=== PATIENT | male | born 1945 | race Caucasian/White ===

== ENCOUNTER 2024-12-28 09:35 | Outpatient (REF) | payer MEDICARE, BC, SELFPAY ==
--- NOTE | ~2024-12-28 | MR_ITS ---
EXAMINATION: MR BRAIN WITHOUT CONTRAST CLINICAL INFORMATION: Memory loss, poor balance. 79-year-old male. COMPARISON: None available. TECHNIQUE: MRI of the brain was obtained using routine sequences without contrast. Examination performed on a 1.5 Joanne Siemens high-field unit. FINDINGS: There is no diffusion restriction. There is no intracranial hemorrhage, acute infarction, mass effect, or edema. Ventricles, sulci, and cisterns are normal in size and configuration for patient age. No asymmetric patterns of atrophy noted. No significant atrophy of the mesial temporal lobes. Temporal horns are symmetric and nondilated. No shift of midline. Numerous foci of hemosiderin deposition in the right posterior temporal/occipital lobe. There are a numerous scattered punctate and minimally confluent foci of white matter T2 hyperintensity in the periventricular, subcortical, and hemispheric deep white matter. These foci are nonspecific but statistically most likely relate to small vessel ischemia. No morphology or distribution specific to inflammatory demyelinating disease. Small focus of encephalomalacia right posterior temporal lobe, likely related to old ischemia. 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 Midline structures appear normally formed. Partial empty sella. Cerebellar tonsils are appropriately located. Major flow voids are preserved within the skull base. 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 Diminutive left vertebral artery. The globes and orbital contents demonstrate no abnormalities. There are bilateral lens replacements. Mucous retention cysts noted in the dependent left maxillary sinus. Paranasal sinuses are otherwise clear bilaterally. The mastoids and tympanic cavities are normally aerated. Extracranial soft tissues demonstrate no abnormalities. No suspicious bone marrow changes are evident. Atlantoaxial joint demonstrates moderate degenerative changes. MR/MR head/brain wo con IMPRESSION: 1. No evidence of intracranial hemorrhage, acute infarction, mass effect, or edema. 2. Age-related cerebral and cerebellar volume loss without asymmetric pattern of atrophy noted. 3. Mild to moderate small vessel ischemic changes. 4. Small focus of encephalomalacia right posterior temporal lobe, with associated hemosiderin deposition, likely related to old hemorrhagic ischemic event. Given location, posttraumatic event is also within the differential. 5. 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 Electronically signed by: Jose Martin Moss MD 12/30/2024 09:11 AM EDT
--- OUTSIDE RECORDS SUMMARY | 2024-12-28 09:55 | XMS_ITS | Clinical Summary ---
Author Organization [facility] Address [address] [place] [address] Care Team Providers Care Structural Ironworker Name Role Phone Syed Camara MD Primary Care Provider [phone] Syed Camara MD Unavailable [phone] Active Problems Problem Noted Date Diagnosed Date Deep vein thrombosis (DVT) 03/04/2023 Social History Tobacco Use Types Packs/Day Years Used Date Smoking Tobacco: Never Assessed Comments:Smoking Status:Cruz campos smoker Sex and Gender Information Value Date Recorded Sex Assigned at Not on file Legal Sex Male 8:17 PM EDT Gender Identity Not on file Sexual Orientation Not on file Last Filed Vital Signs Vital Sign Reading Time Taken Comments Blood Pressure 162/80 04/22/2022 12:42 PM EDT Pulse 96 04/22/2022 12:42 PM EDT Temperature 36.8 C (98.2 F) 05/25/2021 2:22 PM EST Respiratory Rate - - Oxygen Saturation - - Inhaled Oxygen Concentration - - Weight 78.9 kg (174 lb 0.2 oz) 04/22/2022 12:42 PM EDT Height 177.8 cm (5' 10 ) 04/22/2022 12:42 PM EDT Body Mass Index 24.97 04/22/2022 12:42 PM EDT Plan of Treatment Health Maintenance Due Date Last Done Comments Hepatitis C Screening 1945 DTaP/Tdap/Td (1 - Tdap) 10/30/1965 Colon Cancer Screening 10/30/1992 Pneumococcal 50+ years (1 of 1 - PCV) 10/30/1997 Zoster (Shingrix) (1 of 2) 10/30/1997 RSV (1 - 1-dose 75+ series) 10/30/2022 COVID-19 Vaccine ( - 2023-2 5 season) 2024 Influenza (Season Ended) 2025 EKG Discontinued 10/23/2020, 10/23/2020 HPV Vaccine Aged Out No longer eligi ble based on patient's age to complete this topic Hep A Aged Out No longer eligi ble based on patient's age to complete this topic Hep B Aged Out No longer eligi ble based on patient's age to complete this topic Hib Aged Out No longer eligi ble based on patient's age to complete this topic Meningococcal ACWY Aged Out No longer eligible based on patient's age to complete this topic Physical Discontinued Zoster (Zostavax) Discontinued Procedures Procedure Name Priority Date/Time Associated Diagnosis Comments EKG 10/23/2020 11:07 AM EDT from Last 3 Months or Most Recently Relevant to Health Maintenance Results * EKG (10/23/2020 11:07 AM EDT) 10/23/2020 11:0 7 AM EDT Narrative 10/23/2020 11:07 AM EDT Ordered by an unspecified provider. Procedure Note UNKNOWN PROV, PHP - 10/23/2020 11:07 AM EDT . : 11:07A .T: EKG .PV: [facility] EKG report: Heart Rate: 87 bpm P - R wave interval: 132 mSec QT interval: 380 mSec Corrected QT interval: 429 mSec QRS width: 94 mSec P wave frontal axis: 73 QRS complex frontal axis: 3 T wave frontal axis: 63 Interpretation: Sinus Rhythm -RSR(V1) -nondiagnostic . -Left atrial enlargement . -Nonspecific ST depression -Nondiagnostic . Borderline No prevous tracings Patient Data: Blood pressure: 134/84 Weight: 161 lb Height: 70 in Age: 74 Report Date: 10/23/20 Report Time: 11:07:11 Review Date: 10/23/20 Review Time: 12:14 Review By: KWAME Physician: KWAME Chain Testing Machine Operator: # SIGNED BY MOISES BOBO MD ([facility]) 10/23/2020 12:48PM Received for:Moises Bobo Mar 05 2023 11:46PM Eastern Standard Time us Php Unknown Prov CARDIOVASCULAR-NO INBASKET RTG Final Result from Last 3 Months or Most Recently Relevant to Health Maintenance Care Teams Structural Ironworker Relationship Specialty Start Date End Date Syed Camara MD [address] [place] [address] [id number] PCP - General 02/13/23 Syed Camara MD [address] [place] [address] [phone] PCP - Backup PCP Internal Medicine 08/09/23
== END 2024-12-28 09:36 | disposition home or self-care (01) ==
LOC: HO.MRI 09:35
PROVIDERS: Visit Provider Internal Medicine Geriatric Medicine
DX: R41.3 Other amnesia (principal); R26.89 Other abnormalities of gait and mobility
CPT/HCPCS: 70551

== ENCOUNTER → 2024-12-28 10:05 | Outpatient (BNV) | payer MEDICARE, BC, SELFPAY | PROVIDERS: Visit Provider Radiology Diagnostic Radiology | DX: G93.89 Other specified disorders of brain (principal); R90.89 Other abnormal findings on diagnostic imaging of central nervous system | CPT/HCPCS: 70551 ==